=== PATIENT | male | born 1945 | race Caucasian/White ===

== ENCOUNTER 2018-12-24 14:27 | Emergency (ER) | payer MEDICARE ==
[2018-12-24 16:08] VITALS: BP 129/73
[2018-12-24] MEDS ORDERED: DOXYcycline CAP(*) 100 MG PO ONE (16:10)
--- NOTE | 2018-12-24 16:11 | UC ---
Skin Complaint HPI - HPI Summary HPI Summary: patient removed tick from behind left knee this morning---unsure how long it had been attached for-- - History of Current Complaint Chief Complaint: [employer] Time Seen by Provider: 12/24/18 15:58 Stated Complaint: TICK Hx Obtained From: Patient Onset/Duration: Sudden Onset, Resolved Timing: Constant Pain Intensity: 0 Pain Scale Used: 0-10 Numeric Location: Discrete - behind left knee Aggravating Factor(s): Nothing Alleviating Factor(s): Nothing Associated Signs & Symptoms: Negative: Rash, Tenderness, Red Streaks Related History: Insect Bite/Sting - Allergy/Home Medications Allergies/Adverse Reactions: Allergies Allergy/AdvReac Type Severity Reaction Status Date / Time No Known Allergies Allergy Verified 12/24/18 16:16 Home Medications: Home Medications Atorvastatin* [Lipitor 10 MG*] 10 mg PO Q24HR 12/24/18 [History Confirmed ] [place]-3 Fatty Acids/Fish Oil [Fish Oil 1,000 mg Softgel] 1,000 mg PO Q24HR 12/24 [History Confirmed 12/24/18] Ubidecarenone [Co Q-10] 100 mg PO Q1HR 12/24/18 [History Confirmed 12/24/18] Vit D3-Vit K/Berberine/Hops [Ostera Tablet] 2,000 i.u. PO Q24HR 12/24/18 [ History Confirmed 12/24/18] PMH/Surg Hx/FS Hx/Imm Hx Previously Healthy: No Endocrine History: Dyslipidemia - Surgical History Surgical History: Yes Surgery Procedure, Year, and Place: t/a - Family History Known Family History: Positive: None - Social History Occupation: Retired Lives: With Family Alcohol Use: Rare Substance Use Type: None Smoking Status (MU): Never Smoked Tobacco Review of Systems All Other Systems Reviewed And Are Negative: Yes Constitutional: Positive: Negative Skin: Positive: Bruising - behind left knee at site of tick attachment Eyes: Positive: Negative ENT: Positive: Negative Respiratory: Positive: Negative Cardiovascular: Positive: Negative Gastrointestinal: Positive: Negative Genitourinary: Positive: Negative Motor: Positive: Negative Neurovascular: Positive: Negative Musculoskeletal: Positive: Negative Neurological: Positive: Negative Psychological: Positive: Negative Is Patient Immunocompromised?: No Physical Exam Triage Information Reviewed: Yes Appearance: Well-Appearing, No Pain Distress, Well-Nourished Vital Signs: Initial Vital Signs Temp 98.9 F 12/24/18 16:02 Pulse 66 12/24/18 16:02 Resp 18 12/24/18 16:02 BP 129/73 12/24/18 16:02 Pulse Ox 97 12/24/18 16:02 Vital Signs Reviewed: Yes Eye Exam: Normal Eyes: Positive: Conjunctiva Clear ENT Exam: Normal ENT: Positive: Normal ENT inspection, Hearing grossly normal. Negative: Trismus , Muffled voice, Hoarse voice Dental Exam: Normal Neck exam: Normal Neck: Positive: Supple, Nontender Respiratory Exam: Normal Respiratory: Positive: Chest non-tender, No respiratory distress, No accessory muscle use Cardiovascular Exam: Normal Cardiovascular: Positive: Brisk Capillary Refill Musculoskeletal Exam: Normal Musculoskeletal: Positive: Strength Intact, ROM Intact, No Edema Neurological Exam: Normal Neurological: Positive: Alert, Muscle Tone Normal Psychological Exam: Normal Skin: Positive: Other - small bruise behind left knee at site of tick bite Course/Dx - Course Course Of Treatment: Doxycycline 200 mg po times one, onsever for s/s of lyme follow with pcp prn - Diagnoses Provider Diagnosis: Risk of exposure to Lyme disease, Tick bite Discharge ED - Sign-Out/Discharge Documenting (check all that apply): Patient Departure All imaging exams completed and their final reports reviewed: No Studies - Discharge Plan Condition: Stable Disposition: HOME Patient Education Materials: Lyme Disease (ED), Tick Bite (ED) Referrals: Mitzi HASSAN,Archana Burks [Primary Care Provider] - If Needed - Billing Disposition and Condition Condition: STABLE Disposition: Home
== END 2018-12-24 16:27 | disposition home or self-care (01) ==
LOC: UCCORT 14:27
DX: S80.262A Insect bite (nonvenomous), left knee, initial encounter (principal); E78.5 Hyperlipidemia, unspecified; Z20.818 Contact with and (suspected) exposure to other bacterial communicable diseases; W57.XXXA Bitten or stung by nonvenomous insect and other nonvenomous arthropods, initial encounter; Y92.9 Unspecified place or not applicable; Z79.899 Other long term (current) drug therapy
CPT/HCPCS: 99202; A9270-GY; G0463